=== PATIENT | male | born 1950 | race African-American/Black ===

== ENCOUNTER 2016-06-01 05:26 | Observation (INO) | payer OTHER ==
[~2016-06-01] VITALS: Ht 190.5 cm; Wt 90.7 kg
[~2016-06-01 05:26] MED LIST: ALLO300T2 PO; BENA40TA3; CARV6.2548 PO; DILT360C31 PO; ENAL10TA PO; FOLI-43 PO; GABA-529 PO; HYDR-519 PO; ROSU5TAB3 PO; WARF2TAB55 PO
[2016-06-01] MEDS ORDERED: LACTATED RINGERS 1,000 ML IV SCH (06:00)
[2016-06-01 06:16] LABS: EOSINOPHILS % 1.2 % (0.0-5.0); HEMATOCRIT. 38.9 % (42.0-52.0); LYMPHOCYTES % 26.9 % (20.0-50.0); MEAN CORPUSCULAR HEMOGLOBIN 33.2 pg (28.0-32.0); MEAN CORPUSCULAR HGB CONC 33.4 g/dL (31.0-37.0); MEAN CORPUSCULAR VOLUME 99.4 fL (80.0-94.0); MONOCYTES % 6.3 % (2.0-8.0); NEUTROPHILS % 64.6 % (40.0-76.0); PLATELET 117 x1000/uL (130-400); RED BLOOD CELL COUNT 3.91 mill/uL (4.7-6.1); RED CELL DISTRIBUTION WIDTH 13.7 % (11.6-14.6); WHITE BLOOD COUNT 8.2 x1000/uL (4.5-11.0)
[2016-06-01 06:17] LABS: CHLORIDE 106 mEq/L (98-107); INDEX HEMOLYSI 1 (1-3); INDEX ICTERIC 1 (1-4); INDEX LIPEMIC 1 (1-3)
[2016-06-01 06:19] LABS: INR 1.1; PARTIAL THROMBOPLASTIN TIME 24.2 sec (24.0-34.0)
[2016-06-01 06:19] LABS: CLARITY URINE CLEAR (CLEAR); COLOR URINE DARK YELLOW (YELLOW); GLUCOSE URINE NEGATIVE (NEGATIVE); KETONES URINE NEGATIVE (NEGATIVE); LEUKOCYTE ESTERASE URINE NEGATIVE (NEGATIVE); NITRITE URINE NEGATIVE (NEGATIVE); OCCULT BLOOD URINE NEGATIVE (NEGATIVE); PH URINE 5.5 (4.5-8.0); PROTEIN URINE 1+ (NEGATIVE); SPECIFIC GRAVITY URINE 1.021 (1.005-1.030)
[2016-06-01 06:25] LABS: ALANINE AMINOTRANSFERASE 35 IU/L (13-61); ALBUMIN 3.8 g/dL (3.4-5.0); ANION GAP 14; CALCIUM 8.6 mg/dL (8.5-10.1); CARBON DIOXIDE 27 mEq/L (21-32); UREA NITROGEN BLOOD 17 mg/dL (7-21); eGFR 57 mL/min (>60)
[2016-06-01 06:36] LABS: SQUAMOUS EPITHELIAL CELL URINE FEW /lpf (RARE/1+)
[2016-06-01 06:39] LABS: RBC URINE 0-2 /hpf (0-2)
[2016-06-01 06:40] LABS: BACTERIA URINE NONE SEEN
[2016-06-01] MEDS ORDERED: SKIN ADHESIVE 0.7 GM EA TOP ONE ×2 (07:07→09:17)
[2016-06-01] MEDS ORDERED: BUPIVACAINE HCL 0.5% (5MG/ML) 50ML ONE (07:08)
[2016-06-01] MEDS ORDERED: FENTANYL CITRATE/PF 50MCG/ML 2ML VIAL ONE (07:45)
[2016-06-01] MEDS ORDERED: CEFOXITIN SODIUM 2 G in DEXT 5% WATER 100 ML IV SCH (07:45)
[2016-06-01] MEDS ORDERED: MIDAZOLAM HCL 2 MG/2 ML VIAL ONE (07:45)
[2016-06-01] MEDS ORDERED: DEXAMETHASONE 4MG/ML 1ML VIAL ONE (08:03)
[2016-06-01] MEDS ORDERED: GLYCOPYRROLATE 0.2 MG/ML 2ML VIAL ONE (08:03)
[2016-06-01] MEDS ORDERED: SODIUM CHLORIDE 0.9% 10ML VIAL ONE (08:03)
[2016-06-01] MEDS ORDERED: NEOSTIGMINE METHYLSULFATE 1MG/ML 10 ML VIAL ONE (08:03)
[2016-06-01] MEDS ORDERED: ROCURONIUM BROMIDE 10MG/ML VIAL 5ML IV ONE (08:03)
[2016-06-01] MEDS ORDERED: ONDANSETRON HCL 4MG/2ML VIAL ONE (08:04)
[2016-06-01] MEDS ORDERED: LIDOCAINE HCL 1% 20ML VIAL (Pyxis) INJ ONE (08:04)
[2016-06-01] MEDS ORDERED: PROPOFOL 200MG/20ML VIAL IV ONE ×2 (08:04→09:16)
[2016-06-01] MEDS ORDERED: SUCCINYLCHOLINE CHLORIDE 200MG/10ML VIAL IV ONE (08:04)
[2016-06-01] MEDS ORDERED: LABETALOL HCL 20MG/4ML CARPUJECT IV PRN (08:15)
[2016-06-01] MEDS ORDERED: MEPERIDINE HCL/PF 25MG/ML CPJ IV PRN (08:15)
[2016-06-01] MEDS ORDERED: ONDANSETRON HCL 4MG/2ML VIAL IV PRN ×2 (08:15→09:45)
[2016-06-01] MEDS ORDERED: [UNRECOGNIZED DRUG - OTHER] ONE (08:46)
[2016-06-01] MEDS: HYDROMORPHONE HCL/PF 2MG/ML CPJ IV PRN ×7 (09:38→20:26)
[2016-06-01 11:13] VITALS: BP 133/70
[2016-06-01 12:00] VITALS: BP 131/70
[2016-06-01 16:00] VITALS: BP 110/60
[2016-06-01 20:00] VITALS: BP 150/79
[2016-06-01] MEDS: GABAPENTIN 100MG CAPSULE PO SCH (20:22)
[2016-06-01] MEDS ORDERED: ATORVASTATIN CALCIUM 10MG TABLET PO SCH (21:00)
[2016-06-02] VITALS: BP 130/77
[2016-06-02 04:00] VITALS: BP 151/85
[2016-06-02] MEDS: HYDROMORPHONE HCL/PF 2MG/ML CPJ IV PRN ×2 (04:33→09:22)
[2016-06-02 08:00] VITALS: BP 160/85
[2016-06-02] MEDS ORDERED: ENALAPRIL 10MG TABLET PO SCH (09:00)
[2016-06-02] MEDS ORDERED: FOLIC ACID 1MG TABLET PO SCH (09:00)
[2016-06-02] MEDS ORDERED: DILTIAZEM HCL 360MG CAPSULE SA 24HR PO SCH (09:00)
[2016-06-02] MEDS ORDERED: MEDICATION NOT ON FORMULARY EA (Rosuvastatin Calcium (Crestor) 1 TAB) PO SCH (09:00)
[2016-06-02] MEDS ORDERED: ALLOPURINOL 300 MG TABLET PO SCH (09:00)
[2016-06-02] MEDS: GABAPENTIN 100MG CAPSULE PO SCH (09:22)
[2016-06-02 12:00] VITALS: BP 139/74
[2016-06-02 12:40] VITALS: BP 139/75
== END 2016-06-02 13:00 | disposition home or self-care (01) ==
LOC: OR 05:26 → 6EST 11:07 → INTOOBSV 11:07 → 6EST 18:46
PROVIDERS: ADMIT Specialist; ATTEND Specialist
DX: K80.10 Calculus of gallbladder with chronic cholecystitis without obstruction (principal); K66.0 Peritoneal adhesions (postprocedural) (postinfection); I10 Essential (primary) hypertension; E78.5 Hyperlipidemia, unspecified; E11.9 Type 2 diabetes mellitus without complications
CPT/HCPCS: 36415; 47562; 80053; 81001; 85025; 85610; 85730; 88304; 96374; 96376; A4216; G0168; G0378; J0330; J0694; J1100; J1170; J2250; J2405; J2710; J3010; J3490; J7050; J7120; J2704; J7060